=== PATIENT | female | born 2005 | race Caucasian/White ===

== ENCOUNTER 2023-04-08 20:33 | Emergency (ER) | payer MEDICAID, OTHER ==
--- NOTE | 2023-04-08 20:56 | ED GU-Female ---
General Chief Complaint: - Reproductive Stated Complaint: LOWER ABD PAIN Source: patient Exam Limitations: no limitations History of Present Illness Date Seen by Provider: Apr 08, 2023 Time Seen by Provider: 20:53 Initial Comments Patient is a 18-year-old female who presents to ED with a lower abdominal pain. Pain started 2 weeks ago. Described as sharp and intermittent with episodes of increased intensity. She states she does get improvement throughout the day but does note increased pain at night. Patient states pain is located in her lower pelvic and suprapubic. Denies of any vaginal bleeding. Last menstrual cycle was February 24. Denies history of irregular menstrual cycle. No pain with urination frequent urination. She reports a mild vaginal discharge but states this is fairly normal. Currently sexually active with 1 partner not concern for sexual transmitted infection. She vomited twice today. Denies of any diarrhea. She reports normal bowel movements. 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 She took Excedrin Migraine today because she had associated headache. Denies taking any other medication. Patient denies fever, chills, bodies, chest pain, shortness of breath, cough Allergies and Home Medications Patient Home Medication List Home Medication List Reviewed: Yes Review of Systems Review of Systems Constitutional: No chills, No diaphoresis EENTM: No ear pain, No blurred vision, No double vision Respiratory: No cough, No dyspnea on exertion Cardiovascular: No chest pain Gastrointestinal: abdominal pain; No diarrhea; nausea, vomiting Genitourinary: denies burning, denies discharge, denies dysuria, denies frequency, denies flank pain, denies hematuria, denies pain Musculoskeletal: No back pain, No joint pain Skin: No change in color All Other Systemes Reviewed Negative Unless Noted: Yes Physical Exam Vital Signs Vital Signs - First Documented 04/08/23 20:45 Pulse 94 Resp 18 B/P (MAP) 136/71 (92) Pulse Ox 98 O2 Delivery Room Air Capillary Refill : Height, Weight, BMI Height: '" Weight: lbs. oz. kg; BMI Method: General Appearance: WD/WN, no apparent distress HEENT: PERRL/EOMI, normal ENT inspection, TMs normal, pharynx normal Neck: non-tender, full range of motion, supple, normal inspection Cardiovascular: regular rate, rhythm, no edema, no gallop, no JVD Respiratory: chest non-tender, lungs clear, normal breath sounds, no respiratory distress, no accessory muscle use Gastrointestinal: normal bowel sounds, soft, no organomegaly, tenderness (Suprapubic tenderness, left lower quadrant tenderness, right lower quadrant tenderness. Normal bowel sounds throughout. No rebound or guarding) Back: normal inspection, no CVA tenderness, no vertebral tenderness Extremities: normal range of motion, non-tender, normal inspection, no pedal edema Neurologic/Psychiatric: distribution specialist II-XII nml as tested, no motor/sensory deficits, alert, normal mood/affect, oriented x 3 Skin: normal color, warm/dry Progress/Results/Core Measures Suspected Sepsis SIRS Temperature: Pulse: Respiratory Rate: Laboratory Tests 04/08/23 21:06: White Blood Count 14.2H Blood Pressure / Mean: Laboratory Tests 04/08/23 21:06: Creatinine 0.68, Platelet Count 397, Total Bilirubin 0.2 Results/Orders Lab Results Laboratory Tests Test 04/08/23 20:46 04/08/23 21:06 Range/Units Urine Color YELLOW Urine Clarity CLEAR Urine pH 6.0 5-9 Urine Specific [place] >=1.030 1.016-1.022 Urine Protein NEGATIVE NEGATIVE Urine Glucose (UA) NEGATIVE NEGATIVE Urine Ketones NEGATIVE NEGATIVE Urine Nitrite NEGATIVE NEGATIVE Urine Bilirubin NEGATIVE NEGATIVE Urine Urobilinogen 0.2 < = 1.0 MG/DL Urine Leukocyte Esterase NEGATIVE NEGATIVE Urine RBC (Auto) NEGATIVE NEGATIVE Urine RBC 0-2 /HPF Urine WBC 0-2 /HPF Urine Squamous Epithelial Cells 25-50 H /HPF Urine Crystals NONE /LPF Urine Bacteria TRACE /HPF Urine Casts NONE /LPF Urine Mucus SMALL H /LPF Urine Culture Indicated NO Urine Test NEGATIVE NEGATIVE White Blood Count 14.2 H 4.3-11.0 10^3/uL Red Blood Count 4.50 3.80-5.11 10^6/uL Hemoglobin 12.0 11.5-16.0 g/dL Hematocrit 37 35-52 % Mean Corpuscular Volume 82 80-99 fL Mean Corpuscular Hemoglobin 27 25-34 pg Mean Corpuscular Hemoglobin Concent 32 32-36 g/dL Red Cell Distribution Width 13.9 10.0-14.5 % Platelet Count 397 130-400 10^3/uL Mean Platelet Volume 9.7 9.0-12.2 fL Immature Granulocyte % (Auto) 0 % Neutrophils (%) (Auto) 58 42-75 % Lymphocytes (%) (Auto) 35 12-44 % Monocytes (%) (Auto) 5 0-12 % Eosinophils (%) (Auto) 1 0-10 % Basophils (%) (Auto) 0 0-10 % Neutrophils # (Auto) 8.3 H 1.8-7.8 10^3/uL Lymphocytes # (Auto) 4.9 H 1.0-4.0 10^3/uL Monocytes # (Auto) 0.7 0.0-1.0 10^3/uL Eosinophils # (Auto) 0.2 0.0-0.3 10^3/uL Basophils # (Auto) 0.1 0.0-0.1 10^3/uL Immature Granulocyte # (Auto) 0.0 0.0-0.1 10^3/uL Neutrophils % (Manual) 63 % Lymphocytes % (Manual) 31 % Monocytes % (Manual) 1 % Eosinophils % (Manual) 4 % Basophils % (Manual) 1 % Platelet Estimate ADEQUATE Blood Morphology Comment NORMAL Sodium Level 135 135-145 MMOL/L Potassium Level 3.9 3.6-5.0 MMOL/L Chloride Level 107 98-107 MMOL/L Carbon Dioxide Level 17 L 21-32 MMOL/L Anion Gap 11 5-14 MMOL/L Blood Urea Nitrogen 12 7-18 MG/DL Creatinine 0.68 0.60-1.30 MG/DL Estimat Glomerular Filtration Rate 128 BUN/Creatinine Ratio 18 Glucose Level 97 70-105 MG/DL Calcium Level 9.3 8.5-10.1 MG/DL Corrected Calcium 9.4 8.5-10.1 MG/DL Total Bilirubin 0.2 0.1-1.0 MG/DL Aspartate Amino Transf (AST/SGOT) 13 5-34 U/L Alanine Aminotransferase (ALT/SGPT) 14 0-55 U/L Alkaline Phosphatase 116 40-136 U/L Total Protein 7.4 6.4-8.2 GM/DL Albumin 3.9 3.2-4.5 GM/DL Lipase 11 8-78 U/L My Orders Orders - TANA CESAR Ua Culture If Indicated (04/08/23 20:37) Hcg,Qualitative Urine (04/08/23 20:37) Cbc With Automated Diff (04/08/23 20:52) Comprehensive Metabolic Panel (04/08/23 20:52) Lipase (04/08/23 20:52) Manual Differential (04/08/23 21:06) Ct Abdomen/Pelvis Wo (04/08/23 21:28) Vital Signs/I&O 04/08/23 04/08/23 20:45 22:13 Pulse 94 78 Resp 18 18 B/P (MAP) 136/71 (92) 123/78 Pulse Ox 98 99 O2 Delivery Room Air Room Air Capillary Refill : Departure Communication (PCP) Differential diagnosis, UTI, , menstrual pain, PID, appendicitis, endometriosis. History of left ovarian tumor surgically removed earlier this year. Lower abdominal pelvic pain over the past 2 weeks intermittent with episodes of increased intensity. Some pain radiates to the back. No vaginal bleeding. Last menstrual cycle February 24. She does have some vaginal discharge but states this is fairly normal and not concern for sexual transmitted faction. Refused pelvic exam and swabs. Sexually active with 1 partner. No specific urinary symptoms. CBC, CMP, urinalysis with test was ordered. CBC showed a white blood count of 14 but otherwise unremarkable. Chemistry grossly unremarkable. Urinalysis without strong evidence of hematuria or infection. CT abdomen pelvis due to continue pain and was negative for acute abnormality. No evidence of nephrolithiasis, urethritis. No evidence of appendicitis. Not necessarily concern for ovarian torsion due to the general lower abdominal pain and not localized. Left ovary was not noted on CT scan. She states this was surgically removed. No evidence of bowel obstruction. Refused anything for pain. Patient vital signs stable. Discussed taking anti-inflammatories. Could be secondary to start of her menstrual cycle. Other etiologies would be PID however she refused swab. Recommend following up with her primary care physician for further evaluation and potential pelvic exam. She does report a history of normal menstrual cycle. If any worsening symptoms, fever, increasing vomiting to return back to ED. she does have a follow-up with her primary care physician. Impression Primary Impression: Lower abdominal pain Disposition: HOME, SELF-CARE Condition: Stable Departure-Patient Inst. Decision time for Depature: 22:06 Referrals: NO,LOCAL PHYSICIAN (PCP/Family) Primary Care Physician Patient Instructions: Abdominal pain Add. Discharge Instructions: Recommend follow-up your primary care physician for further evaluation. Recommend Tylenol or ibuprofen for the pain. If any worsening symptoms to return back to ED for further evaluation. All discharge instructions reviewed with patient and/or family. Voiced understanding. TANA CESAR Apr 08, 2023 20:56
[2023-04-08 21:03] LABS: BILIRUBIN,URINE NEGATIVE (NEGATIVE); CLARITY,URINE CLEAR; COLOR,URINE YELLOW; GLUCOSE, URINE (UA) NEGATIVE (NEGATIVE); KETONES,URINE NEGATIVE (NEGATIVE); LEUKOCYTE ESTERASE ,URINE NEGATIVE (NEGATIVE); NITRITE,URINE NEGATIVE (NEGATIVE); PROTEIN,URINE NEGATIVE (NEGATIVE)
[2023-04-08 21:15] LABS: BASOPHILS # (AUTO) 0.1 10^3/uL (0.0-0.1); BASOPHILS % (AUTO) 0 % (0-10); EOSINOPHILS # (AUTO) 0.2 10^3/uL (0.0-0.3); EOSINOPHILS % (AUTO) 1 % (0-10); HEMATOCRIT 37 % (35-52); LYMPHOCYTES # (AUTO) 4.9 10^3/uL (1.0-4.0); LYMPHOCYTES % (AUTO) 35 % (12-44); MEAN CORPUSCULAR HEMOGLOBIN 27 pg (25-34); MEAN CORPUSCULAR HGB CONC 32 g/dL (32-36); MEAN CORPUSCULAR VOLUME 82 fL (80-99); MEAN PLATELET VOLUME 9.7 fL (9.0-12.2); MONOCYTES # (AUTO) 0.7 10^3/uL (0.0-1.0); MONOCYTES % (AUTO) 5 % (0-12); NEUTROPHILS # (AUTO) 8.3 10^3/uL (1.8-7.8); NEUTROPHILS % (AUTO) 58 % (42-75); PLATELET COUNT 397 10^3/uL (130-400); WHITE BLOOD COUNT 14.2 10^3/uL (4.3-11.0)
[2023-04-08 21:22] LABS: BACTERIA,URINE TRACE /HPF; RBC,URINE 0-2 /HPF; SQUAMOUS EPITHELIAL CELL,UR 25-50 /HPF; WBC,URINE 0-2 /HPF
[2023-04-08 21:49] LABS: ALBUMIN 3.9 GM/DL (3.2-4.5); BILIRUBIN,TOTAL 0.2 MG/DL (0.1-1.0); CALCIUM 9.3 MG/DL (8.5-10.1); CREATININE SERUM 0.68 MG/DL (0.60-1.30); POTASSIUM 3.9 MMOL/L (3.6-5.0); TOTAL PROTEIN 7.4 GM/DL (6.4-8.2)
--- NOTE | 2023-04-08 22:00 | Diagnostic Imaging Report ---
PROCEDURE: CT abdomen and pelvis without contrast. TECHNIQUE: Multiple contiguous axial images were obtained through the abdomen and pelvis without the use of intravenous contrast. Auto Exposure Controls were utilized during the CT exam to meet ALARA standards for radiation dose reduction. INDICATION: Lower abdominal pain and back pain COMPARISON: None FINDINGS: Lung bases are clear. The heart is normal in size. The liver demonstrates no focal lesions. The spleen appears normal. The pancreas is normal. The adrenal glands appear normal. The kidneys demonstrate no hydronephrosis and no calculi. The appendix is normal (image 96 series 2). Bowel loops are nondistended without obstruction. No free fluid or free air is seen. The aorta is normal in caliber. No lymphadenopathy is seen. The right ovary is noted. The left ovary is not seen. The uterus appears normal in size. No acute osseous abnormality is seen. IMPRESSION: 1. No acute abnormality is seen in the abdomen and pelvis. Dictated by: Dictated on workstation # [id number]
[2023-04-08 22:03] LABS: BASOPHILS % (MANUAL) 1 %; EOSINOPHILS % (MANUAL) 4 %; LYMPHOCYTES % (MANUAL) 31 %; MONOCYTES % (MANUAL) 1 %; NEUTROPHILS % (MANUAL) 63 %; PLATELET ESTIMATE ADEQUATE; RBC MORPH NORMAL
[2023-04-08 22:13] VITALS: BP 123/78
== END 2023-04-08 22:13 | disposition home or self-care (01) ==
LOC: ER 20:36
DX: R10.31 Right lower quadrant pain (principal); R10.32 Left lower quadrant pain
CPT/HCPCS: 36415; 74176; 80053; 81000; 83690; 84703; 85007; 85027; 99282